=== PATIENT | female | born 1945 | race American Indian/Alaskan Native ===

== ENCOUNTER 2022-10-08 12:22 | Emergency (ER) | payer OTHER ==
[2022-10-08 12:39] VITALS: BMI 16.8
[2022-10-08] MEDS ORDERED: SODIUM CHLORIDE 0.9% 500 ML INFUS.BAG IV ONE (13:33)
[2022-10-08 14:25] LABS: BASO % 0.2 % (0-2.0); HEMOGLOBIN 12.7 GM/dL (10.7-15.3); LYMPH % 5.1 % (8-40); MCH 31.2 pg (25.7-33.7); MCHC 33.5 g/dl (32.0-36.0); MEAN CELL VOLUME 93.1 fl (80-96); MEAN PLT VOLUME 8.7 fl (7.5-11.1); MONO % 4.4 % (3.8-10.2); NEUT % 90.3 % (42.8-82.8); PLATELET COUNT 201 10^3/uL (134-434); RBC 4.08 M/mm3 (3.60-5.2); RDW 13.1 % (11.6-15.6); WHITE BLOOD COUNT 10.8 K/mm3 (4.0-10.0)
[2022-10-08 15:11] LABS: ALBUMIN 3.9 g/dl (3.4-5.0); CALCIUM 10.9 mg/dL (8.5-10.1)
[2022-10-08 15:12] LABS: BLOOD UREA NITROGEN 20.7 mg/dL (7-18); MAGNESIUM 2.1 mg/dL (1.8-2.4)
[2022-10-08 15:14] LABS: CREATININE 1.2 mg/dL (0.55-1.3)
[2022-10-08 15:15] LABS: PHOSPHOROUS 2.3 mg/dL (2.5-4.9)
[2022-10-08 15:16] LABS: TOT PROT 6.8 g/dl (6.4-8.2)
[2022-10-08 18:46] VITALS: BP 122/62; PULSE 85; RESP 18; TEMP 97.1
== END 2022-10-08 18:46 | disposition home or self-care (01) ==
LOC: JER 12:22
DX: I95.1 Orthostatic hypotension (principal)
CPT/HCPCS: 36415; 71045-TC-FY; 80053; 83735; 84100; 84484; 85025; 93005; 93010; 99285-25